=== PATIENT | male | born 1950 | race Caucasian/White ===

== ENCOUNTER 2024-10-26 15:59 | Emergency (ER) | payer MEDICARE, OTHER, SELFPAY ==
[2024-10-26 16:10] VITALS: BP 158/66
--- NOTE | 2024-10-26 17:28 | ED.GENMED ---
History of Present Illness
General
Chief Complaint: Musculo-Skeletal Complaint
Time Seen by Provider: 10/26/24 17:05
History of Present Illness
History of Present Illness:
74-year-old male presents to the emergency department for evaluation of right hip pain after a fall yesterday. He is able to bear weight with moderate pain. He has a history of total hip replacement performed in 2006 by [facility] orthopedics. Took
ibuprofen today without any relief
Past History
Past History
ED Past Medical History: GERD, Psychiatric (Anxiety, ) and Other (HIV/AIDS, Eczema, Anemia)
ED Past Surgical History: Orthopedic (right hip replacement)
Social History
Tobacco: Non-smoker
Alcohol: Occasional
Personal: Partner (Same sex)
Living: with family
Family History
Family History: Other (Mother with anemia)
Review of Systems
Review of Systems
Allergies reviewed?: Yes
All Other Systems: ROS reviewed and negative except as documented in HPI and ROS
Phy Exam
Physical Exam
Physical Exam:
GEN: Well appearing, NAD, WDWN
HEENT: Oral mucosa moist, no scleral icterus
Cardiac: Regular rate
Lung: No respiratory distress, no tachypnea
MSK: No gross deformity or injuries. Tenderness to the right greater trochanteric region of the hip. Right hip range of motion is normal, external rotation elicits increased pain
Skin: Good color, no pallor or jaundice, no rashes
Neuro: AO x3, moves all extremities freely
Psych: Calm, cooperative
Course
Orders/Labs/Results
Orders:
Orders
10/26/24 16:13
CR Hip - RT w/wo Pel 2-3 Vw* Urgent
Comment:
Reason For Exam: fall, pain
Include a pelvis x-ray?: Yes
10/26/24 17:24
Oxycodone [Roxicodone] 5 mg PO NOW STA
Vital Signs
Initial and Last Documented VS:
Initial Vital Signs
Temp Pulse Resp BP Pulse Ox
97.4 F 67 16 158/66 99
10/26/24 16:10 10/26/24 16:10 10/26/24 16:10 10/26/24 16:10 10/26/24 16:10
Last Documented Vital Signs
Temp Pulse Resp BP Pulse Ox
97.4 F 67 16 158/66 99
10/26/24 16:10 10/26/24 16:10 10/26/24 16:10 10/26/24 16:10 10/26/24 16:10
MDM/Problems Addressed
MDM/Problems Addressed:
X-rays reveal a periprosthetic fracture of the right greater trochanteric region of the hip. Imaging reviewed with [facility] on-call who recommends weightbearing as tolerated with walker, avoidance of abduction
*Critical Care Note
Total Time (30-74mins, 75-104mins- exclusive of procedures): Not Applicable
ED Attending Note
-
Portions of this chart may have been created with voice recognition software.� Occasional wrong word or��sound alike� substitutions may have occurred due to the inherent limitations of voice recognition software.
Discharge Plan
Departure
Patient Disposition: Home (Routine Discharge)
Date of Disposition: 10/26/24
Time of Disposition: 17:29
Patient with high blood pressure during this ER visit?: No
Discharge Problem:
Periprosthetic fracture around internal prosthetic right hip joint
Instructions: Hip fracture
Prescriptions:
New
oxycodone 5 mg tablet
5 mg PO Q8H PRN (Reason: Pain) Qty: 10 0RF
No Action
acetaminophen [Tylenol] 325 MG tablet
650 mg PO PRN PRN (Reason: fever)
esomeprazole magnesium [Nexium] 20 MG capsule,delayed release(DR/EC)
20 mg PO DAILY
Patient Comments:
pt seems unsure of dose
Uknown Prescription Sleeping Med
PRN PRN (Reason: sleep)
fluconazole [Diflucan] 100 MG tablet
100 mg PO DAILY Qty: 14 0RF
clotrimazole 10 MG siomara
10 mg PO 5/D Qty: 60 0RF
valacyclovir [Valtrex] 1,000 MG tablet
1,000 mg PO TID Qty: 20 0RF
hydrocodone-acetaminophen 1 TABLET tablet
1 tab PO Q4HPRN PRN (Reason: severe pain) Qty: 16 0RF
doxycycline hyclate 100 MG capsule
100 mg PO Q12 Qty: 20 0RF
prednisone 20 mg tablet
20 mg PO DAILY Qty: 3 0RF
cephalexin 500 mg capsule
500 mg PO QID 7 Days Qty: 28 0RF
Referrals:
Andi Thomas MD [Active] -
Activity Restrictions/Additional Instructions:
You may bear weight with walker assistance
Follow-up with your orthopedic office tomorrow
Avoid abduction, which is pulling the leg away from the body
Interventions
Interventions:
*Risk Screen - Suicide Last Done: 10/26/24 16:10
*General Assessment Last Done: 10/26/24 16:10
*ED COVID-19 Vaccine History Last Done: 10/26/24 16:10
*Nursing Disposition Last Done: 10/26/24 18:06
ED-Musculoskeletal Assessment Last Done: 10/26/24 18:06
Discharge Date and Time
Discharge Date/Time: 10/26/24 18:07
Print Language: BENGALI
[2024-10-26] MEDS: ROXICODONE 5 MG PO (17:35)
== END 2024-10-26 18:07 | disposition home or self-care (01) ==
LOC: EMR 15:59
PROVIDERS: EMERGENCY PHYSICIAN Emergency Medicine; FAMILY PHYSICIAN Student in an Organized Health Care Education/Training Program
DX: M97.01XA Periprosthetic fracture around internal prosthetic right hip joint, initial encounter (principal); W19.XXXA Unspecified fall, initial encounter; K21.9 Gastro-esophageal reflux disease without esophagitis; F41.9 Anxiety disorder, unspecified; D64.9 Anemia, unspecified; L30.9 Dermatitis, unspecified
CPT/HCPCS: 99283; 73502